=== PATIENT | male | born 1985 | race Caucasian/White ===

== ENCOUNTER 2018-08-20 23:01 | Emergency (ER) | payer BC, OTHER ==
[2018-08-20 23:08] VITALS: BP 124/81; PULSE 79; TEMP 98.5; BMI 26.2
[2018-08-20] MEDS ORDERED: DIPHTH,PERTUSS(ACELL),TET 0.5 ML DISP.SYRIN IM ONE (23:14)
[2018-08-20] MEDS ORDERED: TETANUS AND DIPHTHERIA TOXOID 0.5 ML DISP.SYRIN IM ONE (23:17)
--- NOTE | 2018-08-20 23:17 | PDOC ---
History of Present Illness - General History Source: Patient Exam Limitations: No Limitations - History of Present Illness Initial Comments: 08/20/18 23:13 A portion of this note was documented by scribe services under my direction. I have reviewed the details of the note, within reason, and agree with the documentation with the following case summary and management plan written by me. Patient treated in the ED. Nursing notes are reviewed and incorporated into the medical decision-making. Vital signs reviewed. 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 Patient was cutting some green peppers. The patient's last tetanus is unknown. Patient put a Band-Aid on it but it said it was stopping bleeding so he comes in for evaluation. Procedure note laceration repair with Dermabond Laceration cleaned and closed with Dermabond patient tolerated well Band-Aid applied Patient discharged home <Cristhian Olson I - Last Filed: 08/20/18 23:13> - General History Source: Patient Exam Limitations: No Limitations - History of Present Illness Initial Comments: 08/20/18 23:17 The patient is a 32-year-old male, with no past medical history, who presents to the ED with s/p sustaining a laceration to his right thumb. The patient was cutting green peppers. Last tetanus is unknown. Patient decided to come in for further evaluation due to persistent bleeding. The patient denies having any other injuries or symptoms. PAST MEDICAL HISTORY: no significant history PAST SURGICAL HISTORY: no significant history FAMILY HISTORY: no pertinent history HISTORY: Pt lives with family and is employed. MEDICATIONS: reviewed ALLERGIES: As per nursing notes Adult ROS General: No fevers or chills, no weakness, no weight loss HEENT: No change in vision. No sore throat,. No ear pain CardioVascular: No chest pain or shortness of breath Respiratory:No cough, or wheezing. Gastrointestinal: no nausea, vomiting, diarrhea or constipation, No rectal bleeding Genitourinary: No dysuria, hematuria, or frequency Musculoskeletal: No joint or muscle pain or swelling Neurologic: No headache, vertigo, dizziness or loss of consciousness Psychiatric: nor depression Skin: (+)Laceration to right thumb. Endocrine: no increased thirst or abnormal weight change Allergic: no skin or latex allergy All other systems reviewed and normal Basic PE GENERAL: The patient is awake, alert, and fully oriented, in no acute distress. HEAD: Normal with no signs of trauma. EYES: Pupils equal, round and reactive to light, extraocular movements intact, sclera anicteric, conjunctiva clear. EXTREMITIES: (+)Skin avulsion to the tip of the right thumb, no active bleeding. No edema. NEUROLOGICAL: Normal speech, normal gait. PSYCH: Normal mood, normal affect. SKIN: Warm, Dry, normal turgor. <Miriam Hall - Last Filed: 08/20/18 23:22> - General Chief Complaint: Laceration Stated Complaint: R 1ST DIGIT LAC Time Seen by Provider: 08/20/18 23:07 Past History - Past Medical History COPD: No - Immunization History Immunization Up to Date: Yes - Suicide/Smoking/Psychosocial Hx Smoking History: Unknown if ever smoked Have you smoked in the past 12 months: No Number of Cigarettes Smoked Daily: 0 Information on smoking cessation initiated: No Hx Alcohol Use: No Drug/Substance Use Hx: No <Cristhian Olson I - Last Filed: 08/20/18 23:13> <Miriam Hall - Last Filed: 08/20/18 23:22> - Past Medical History Allergies/Adverse Reactions: Allergies Allergy/AdvReac Type Severity Reaction Status Date / Time peanut Allergy Verified 12/11/14 04:38 nuts Allergy Uncoded 12/11/14 04:38 Home Medications: Ambulatory Orders NK [No Known Home Medication] 12/11/14 Review of Systems - Review of Systems Able to Perform ROS?: Yes <Miriam Hall - Last Filed: 08/20/18 23:22> *Physical Exam - Vital Signs Last Vital Signs Temp Pulse Resp BP Pulse Ox 98.5 F 79 14 124/81 98 08/20/18 23:05 08/20/18 23:05 08/20/18 23:05 08/20/18 23:05 08/20/18 23:05 <Cristhian Olson I - Last Filed: 08/20/18 23:13> - Vital Signs Last Vital Signs Temp Pulse Resp BP Pulse Ox 98.5 F 79 14 124/81 98 08/20/18 23:05 08/20/18 23:05 08/20/18 23:05 08/20/18 23:05 08/20/18 23:05 <Miriam Hall - Last Filed: 08/20/18 23:22> Moderate Sedation - Procedure Monitoring Vital Signs: Procedure Monitoring Vital Signs Temperature 98.5 F 08/20/18 23:05 Pulse Rate 79 08/20/18 23:05 Respiratory Rate 14 08/20/18 23:05 Blood Pressure 124/81 08/20/18 23:05 O2 Sat by Pulse Oximetry (%) 98 08/20/18 23:05 <Cristhian Olson I - Last Filed: 08/20/18 23:13> - Procedure Monitoring Vital Signs: Procedure Monitoring Vital Signs Temperature 98.5 F 08/20/18 23:05 Pulse Rate 79 08/20/18 23:05 Respiratory Rate 14 08/20/18 23:05 Blood Pressure 124/81 08/20/18 23:05 O2 Sat by Pulse Oximetry (%) 98 08/20/18 23:05 <Miriam Hall - Last Filed: 08/20/18 23:22> *DC/Admit/Observation/Transfer - Discharge Dispostion Decision to Admit order: No <Cristhian Olson I - Last Filed: 08/20/18 23:13> - Attestations Scribe Attestion: 08/20/18 23:21 Documentation prepared by Miriam Hall, acting as medical claims examiner for Cristhian Olson MD. <Miriam Hall - Last Filed: 08/20/18 23:22> Diagnosis at time of Disposition: Laceration of thumb Qualifiers: Encounter type: initial encounter Damage to nail status: without damage Foreign body presence: without foreign body Laterality: right Qualified Code(s) : S61.011A - Laceration without foreign body of right thumb without damage to nail, initial encounter - Discharge Dispostion Disposition: HOME Condition at time of disposition: Good - Patient Instructions Printed Discharge Instructions: DI for Laceration Repair With Dermabond Additional Instructions: Keep the finger dry do not get the Dermabond wet for 72 hours.. Wear a glove when you shower or wash her hands to keep it from getting wet. Do not put any petroleum based products on it such as antibiotic ointment because it will cause the glue to melt off. Cover with a Band-Aid for the next 3 days after that you can leave it open depending upon what you're doing, as a Band-Aid will help protect it. Return to the emergency department immediately with ANY new, persistent or worsening symptoms. Continue any medications as previously prescribed by your physician. You should follow up with your primary doctor as soon as possible regarding today's emergency department visit. . Please make sure your doctor reviews the results of your emergency evaluation. Thank you for coming to the Emergency Department today for your care. It was a pleasure to see you today. Please note that your evaluation is INCOMPLETE until you follow-up with your doctor. - Post Discharge Activity
== END 2018-08-20 23:21 | disposition home or self-care (01) ==
LOC: FER 23:01
PROC: 0HQFXZZ Repair Right Hand Skin, External Approach (ICD-10-PCS; principal; 2018-08-20)
DX: S61.011A Laceration without foreign body of right thumb without damage to nail, initial encounter (principal); W26.0XXA Contact with knife, initial encounter; Y93.G3 Activity, cooking and baking; Y92.89 Other specified places as the place of occurrence of the external cause; Y99.0 Civilian activity done for income or pay
CPT/HCPCS: 90715; 99283-25